=== PATIENT | male | born 1995 | race Caucasian/White ===

== ENCOUNTER 2024-02-13 16:40 | Emergency (ER) | payer BC, MEDICAID, OTHER ==
[~2024-02-13] VITALS: Ht 180.3 cm; Wt 65.9 kg
[~2024-02-13 16:40] MED LIST: FLO0.4C PO; HYDR-4353 PO
[2024-02-13] MEDS ORDERED: LIDOcaine 1% W/epiNEPHrine 1:200,000 10ml vial IJ STA (17:00)
[2024-02-13] MEDS: LIDOcaine 1% W/epiNEPHrine 1:100,000 20ml vial IJ STA (17:47)
[2024-02-13] MEDS: morphine 4 MG/ML inj SYRINge IV STA (18:29)
[2024-02-13] MEDS: LIDOcaine 1% W/epiNEPHrine 1:100,000 20ml vial IJ ONE (18:49)
[2024-02-13] MEDS ORDERED: CEPH250T PO (19:14)
[2024-02-13] MEDS ORDERED: tetanus & diphtheria toxoid (Td) vaccine 0.5ml IMVAC ONE (19:20)
[2024-02-13] MEDS: TETanus/Pertussis (Acell)/Diphther VAC/PF (Tdap-Adult) 0.5ml syringe IMVAC ONE (19:47)
[2024-02-13 19:56] VITALS: BP 146/90; PULSE 100; RESP 18; TEMP 98.2; O2SAT 100
== END 2024-02-13 20:20 | disposition home or self-care (01) ==
LOC: ER 16:40
DX: S81.811A Laceration without foreign body, right lower leg, initial encounter (principal); Z79.899 Other long term (current) drug therapy; X58.XXXA Exposure to other specified factors, initial encounter; Y93.89 Activity, other specified; Y92.89 Other specified places as the place of occurrence of the external cause; Y99.8 Other external cause status
CPT/HCPCS: 12004; 90471; 90715; 96374; 99284; J2270; J7030; A6446; A6449